=== PATIENT | female | born 1995 | race Caucasian/White ===

== ENCOUNTER 2019-06-05 22:37 | Emergency (ER) | payer BC ==
[~2019-06-05] VITALS: Ht 157.5 cm; Wt 56.7 kg
[2019-06-05 23:01] LABS: *BILIRUBIN,URIN NEGATIVE (NEGATIVE); *BLOOD, URINE 2+ (NEGATIVE); *COLOR,URINE YELLOW (YELLOW); *KETONES,URINE NEGATIVE (NEGATIVE); *UROBILINOGEN,URINE 0.2 E.U./dl (NORMAL); LEUKOCYTE ESTERASE ,URINE NEGATIVE (NEGATIVE); NITRITE, URINE NEGATIVE (NEGATIVE); PH,URINE 6.5 (5.0-8.0); UGLUCOSE NEGATIVE (NEGATIVE)
[2019-06-05 23:07] LABS: *CLARITY,URINE HAZY (CLEAR)
--- NOTE | 2019-06-05 23:12 | NUR ---
MD AT BEDSIDE FOR HX AND PHYSICAL
[2019-06-05 23:16] LABS: *URINE HCG, QUAL NEGATIVE (NEGATIVE)
[2019-06-05 23:19] LABS: BACTERIA,URINE FEW /HPF (NONE SEEN); MUCUS,URINE FEW /LPF (0-FEW); RBC,URINE 80-100 /HPF (0-3); SQUAMOUS EPITHELIAL CELL,UR FEW /HPF (NONE SEEN)
[2019-06-05] MEDS ORDERED: IV NS 1000 ML 1,000 ML IV ONE (23:45)
[2019-06-05] MEDS ORDERED: KETOROLAC TROMETHAMINE 15 MG INJ IVP ONE (23:45)
[2019-06-05] MEDS ORDERED: KETOROLAC TROMETHAMINE 15 MG INJ ONE (23:59)
--- NOTE | 2019-06-06 | NUR ---
BOB DRIVER AT BEDSIDE TO ACCOMPANY PT TO CT VIA WHEELCHAIR INTACT SALINE LOCK G20 TO R AC
[2019-06-06 00:01] LABS: CREATININE 1.1 mg/dL (0.6-1.3)
[2019-06-06 00:04] LABS: BASOPHILS # (AUTO) 0.1 K/uL (0.0-8.0); BASOPHILS % (AUTO) 0.7 % (0.0-2.0); EOSINOPHILS # (AUTO) 0.2 K/uL (0.0-0.7); EOSINOPHILS % (AUTO) 2.3 % (0.0-7.0); HEMATOCRIT 39.5 % (31.2-41.9); HEMOGLOBIN 13.4 g/dL (10.9-14.3); LYMPHOCYTES # (AUTO) 3.5 K/uL (20.0-40.0); LYMPHOCYTES % (AUTO) 34.9 % (20.5-51.5); MEAN CORPUSCULAR HEMOGLOBIN 30.2 uug (24.7-32.8); MEAN CORPUSCULAR HGB CONC 34 g/dL (32.3-35.6); MEAN CORPUSCULAR VOLUME 89.2 fL (75.5-95.3); MONOCYTES # (AUTO) 0.7 K/uL (2.0-10.0); MONOCYTES % (AUTO) 6.6 % (0.0-11.0); NEUTROPHILS # (AUTO) 5.5 K/uL (1.8-8.9); NEUTROPHILS % (AUTO) 55.5 % (38.5-71.5); PLATELET COUNT (AUTO) 347 K/uL (179-408); RED BLOOD CELL COUNT(AUTO) 4.43 MIL/uL (3.63-4.92); WHITE BLOOD COUNT (AUTO) 9.9 K/uL (3.8-11.8)
[2019-06-06 00:07] LABS: BILIRUBIN,TOTAL 0.9 mg/dL (0.2-1.0); TOTAL PROTEIN, SERUM 7.4 g/dL (6.4-8.2)
--- NOTE | 2019-06-06 00:20 | NUR ---
PT BACK FROM CT ACCOMPANIED BY CAPSULE MAKER VIA WHEELCHAIR SALINE LOCK INTACT TO R AC G20 PT NAD, SMILING PAIN LOWERED TO 4-5/10 [id number] UP, BED AT LOWEST POSITION RESUMED IVF INFUSION ORDERED
--- NOTE | 2019-06-06 00:45 | NUR ---
BOO ANDRADE) ON THE PHONE WITH JAMIE
--- NOTE | 2019-06-06 00:59 | NUR ---
[employer] CONTACTED INSURANCE PROVIDER([place]) ADMITTING DX: RENAL COLIC FOR MEDSUR BED STABLE
--- NOTE | 2019-06-06 01:04 | NUR ---
PT ABLE TO AMBULATE TOWARDS THE RESTROOM ABLE TO VOID FREELY
--- NOTE | 2019-06-06 02:42 | NUR ---
DC IV SALINE LOCK, DRESSED Patient discharged to home in stable conditon. Written and verbal after care instructions given. Patient verbalizes understanding of instructions. AMBULATORY W/ STABLE GAIT ALL BELONGINGS W/ PT
[2019-06-06 02:43] VITALS: BP 110/80
== END 2019-06-06 02:43 | disposition home or self-care (01) ==
LOC: ER 22:45
DX: N20.1 Calculus of ureter (principal); J45.909 Unspecified asthma, uncomplicated
CPT/HCPCS: 36415; 74176; 80053; 81000; 81001; 82550; 84703; 85025; 87086; 96374; 99283; J1885; A4663; J7030